=== PATIENT | male | born 1975 ===

== ENCOUNTER → 2016-11-23 | Outpatient (CLI) | payer OTHER ==
--- NOTE | 2016-11-23 16:59 | Diagnostic Imaging Report ---
PROCEDURE: CT sinuses without contrast TECHNIQUE: Multiple contiguous axial images were obtained through the sinuses without the use of intravenous contrast. Coronal and sagittal reformations were then performed. INDICATION: Chronic sinusitis. FINDINGS: The nasal septum is midline and unremarkable. There is a metallic BB left infraorbital protruding into the maxillary sinus wall. No air-fluid levels. No substantial maxillary sinus membrane thickening. The maxillary sinus ostia are patent bilaterally. The ethmoid air cells are clear and well expanded. The turbinates are grossly unremarkable. The frontal sinuses hypoplastic on the left and clear on the right. The mastoid air cells, middle ear cavities, and external auditory canals are unremarkable. The sphenoid sinuses are clear. IMPRESSION: Clear paranasal sinuses. No substantial membrane thickening, air-fluid level, or ostial obstruction. No bony destructive process. 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 Dictated by: Dictated on workstation # [id number]
== END ==
LOC: RAD 14:02
PROVIDERS: ATTEND Family Medicine
DX: J32.9 Chronic sinusitis, unspecified (principal)
CPT/HCPCS: 70486